=== PATIENT | female | born 1995 | race Caucasian/White ===

== ENCOUNTER 2023-05-17 11:00 | Inpatient (IN) | payer BC ==
[2023-05-17 12:27] VITALS: BMI 30.9
[2023-05-17] MEDS ORDERED: hydrALAZINE 20 MG/ML VIAL SLOW IVP PRN ×3 (13:08→23:21)
[2023-05-17] MEDS ORDERED: Lactated Ringer's 1,000 ML IV SCH (13:15)
[2023-05-17] MEDS ORDERED: Carboprost 250 MCG/ML AMP IM PRN (15:10)
[2023-05-17] MEDS ORDERED: Ibuprofen 800 MG TAB PO PRN (15:10)
[2023-05-17] MEDS ORDERED: Acetaminophen 500 MG TAB PO PRN (15:10)
[2023-05-17] MEDS ORDERED: Lidocaine 1% (PF) 30 ML VIAL SC PRN (15:10)
[2023-05-17] MEDS ORDERED: Misoprostol 200 MCG TAB PR PRN (15:10)
[2023-05-17] MEDS ORDERED: Tranexamic Acid 1,000 MG/10 ML VIAL IVP PRN (15:10)
[2023-05-17] MEDS ORDERED: Ondansetron PF 4 MG/2 ML Vial IVP PRN ×3 (15:10→23:21)
[2023-05-17] MEDS ORDERED: Methylergonovine 0.2 MG/ML VIAL IM PRN (15:10)
[2023-05-17] MEDS ORDERED: Promethazine HCl 25 MG/ML VIAL IM PRN ×2 (15:10→17:16)
[2023-05-17] MEDS ORDERED: Misoprostol 100 MCG TAB VAG SCH (15:15)
[2023-05-17] MEDS ORDERED: Oxytocin 30 units/NS 500 ML 500 ML IV SCH ×4 (15:15→23:21)
[2023-05-17 15:37] LABS: Hematocrit 36.5 % (34.9-44.5); Hemoglobin 12.4 g/dL (12.0-15.5); Mean Corpuscular Volume 76.5 fl (81.6-98.3); Mean Platelet Volume 10.1 fl (7.4-10.4); Platelet Count 212 10x3/uL (150-450); RBC Distribution Width 12.8 % (11.5-14.5); Red Blood Cell (RBC) Count 4.77 10x6/uL (3.90-5.03)
[2023-05-17 16:10] LABS: Syphilis Antibody Nonreactive (Nonreactive); Syphilis Antibody Index 0.13 S/CO (<1.00 Non-Reactive)
[2023-05-17 16:11] LABS: HBSAg Index 0.18 S/CO (0-0.99); Hep B Surf Ag - L&D Non-Reactive S/CO (NonReactive)
[2023-05-17] MEDS ORDERED: fentaNYL/Ropivacaine Epidural 100 ML ONE (16:26)
[2023-05-17] MEDS ORDERED: ePHEDrine Sulfate 50 MG/10 ML VIAL SLOW IVP PRN (17:16)
[2023-05-17] MEDS ORDERED: diphenhydrAMINE 50 MG/ML VIAL IVP PRN (17:16)
[2023-05-17] MEDS ORDERED: Lactated Ringer's 500 ML IV PRN (17:16)
[2023-05-17] MEDS ORDERED: Acetaminophen 325 MG TAB PO PRN (17:16)
[2023-05-17] MEDS ORDERED: Moisturizing Cream (Eucerin) 113 GM JAR TOP PRN (17:16)
[2023-05-17] MEDS ORDERED: Naloxone HCl 0.4 mg/ml Vial IVP PRN ×2 (17:16)
[2023-05-17] MEDS ORDERED: Communication Order-Pharmacy FS SCH (17:30)
[2023-05-17] MEDS ORDERED: fentaNYL 2 mcg/Ropivacaine 0.2% Epidural 100 ML CADD EPIDURAL SCH (17:30)
[2023-05-17] MEDS ORDERED: HYDROcodone/Acetaminophen 5/325 mg Tablet PO PRN (23:21)
[2023-05-17] MEDS ORDERED: Misoprostol 200 MCG TAB VAG PRN (23:21)
[2023-05-17] MEDS ORDERED: Lanolin Ointment 7 GM TUBE TOP PRN (23:21)
[2023-05-17] MEDS ORDERED: Boostrix 0.5 ML (Tdap) VIAL (>/=7 yrs of age) IM ONE (23:21)
[2023-05-17] MEDS ORDERED: Benzocaine-Menthol 82.5 ML CAN TOP PRN (23:21)
[2023-05-17] MEDS ORDERED: Bisacodyl 10 MG SUPP PR PRN (23:21)
[2023-05-17] MEDS ORDERED: Milk Of Magnesia 30 ML UDCUP PO PRN (23:21)
[2023-05-17] MEDS ORDERED: Ibuprofen 800 MG TAB PO SCH (23:30)
[2023-05-17] MEDS ORDERED: Docusate 100 MG CAP PO SCH (23:30)
[2023-05-18] MEDS ORDERED: Ibuprofen 800 MG TAB PO SCH (06:00)
[2023-05-18] MEDS: Ferrous Sulfate 325 MG TAB PO SCH ×2 (07:18→16:30)
[2023-05-18] MEDS ORDERED: Bupivacaine 0.25% HCL 30 ML VIAL ONE (08:00)
[2023-05-18] MEDS: HYDROcodone/Acetaminophen 5/325 mg Tablet PO PRN ×2 (08:12→18:19)
[2023-05-18] MEDS ORDERED: Docusate 100 MG CAP PO SCH (09:00)
[2023-05-18] MEDS ORDERED: Prenatal Vitamin 1 TAB PO SCH (09:00)
[2023-05-18] MEDS: Ibuprofen 800 MG TAB PO SCH ×2 (09:10→17:13)
[2023-05-18 20:09] VITALS: BP 117/66; TEMP 97.6
== END 2023-05-18 22:20 | disposition home or self-care (01) | DRG 807 ==
LOC: CSHLD/OP 11:00 → CSHLD 15:14 → CSHPP 22:55
PROVIDERS: ADMIT Student in an Organized Health Care Education/Training Program; ATTEND Student in an Organized Health Care Education/Training Program
PROC: 10E0XZZ Delivery of Products of Conception, External Approach (ICD-10-PCS; principal; 2023-05-17)
PROC: 3E033XZ Introduction of Vasopressor into Peripheral Vein, Percutaneous Approach (ICD-10-PCS; 2023-05-17)
DX: O80 Encounter for full-term uncomplicated delivery (principal); Z37.0 Single live birth; Z3A.38 38 weeks gestation of pregnancy
CPT/HCPCS: 36415; 85027; 86780; 86850; 86900; 86901; 87340; J0665; J2590

== ENCOUNTER 2024-12-24 06:28 | Inpatient (IN) | payer BC ==
[2024-12-24] MEDS ORDERED: hydrALAZINE 20 MG/ML VIAL SLOW IVP PRN ×2 (11:23→20:54)
[2024-12-24] MEDS ORDERED: Ondansetron PF 4 MG/2 ML Vial IVP PRN ×2 (11:23→12:37)
[2024-12-24] MEDS ORDERED: Lidocaine 1% (PF) 30 ML VIAL SC PRN (11:26)
[2024-12-24] MEDS ORDERED: Ibuprofen 800 MG TAB PO PRN (11:26)
[2024-12-24] MEDS ORDERED: Oxytocin 30 units/NS 500 ML 500 ML IV SCH ×2 (11:30→20:54)
[2024-12-24] MEDS ORDERED: Diphenoxylate HCl/Atropine Tablet PO PRN ×2 (11:32)
[2024-12-24] MEDS ORDERED: Carboprost 250 MCG/ML AMP IM PRN (11:32)
[2024-12-24 11:44] LABS: Hematocrit 39.9 % (34.9-44.5); Hemoglobin 13.3 g/dL (12.0-15.5); Mean Corpuscular Hemoglobin 26.3 pg (27.0-33.0); Mean Corpuscular Volume 79.0 fL (81.6-98.3); Platelet Count 242 10x3/uL (150-450); Red Blood Cell (RBC) Count 5.05 10x6/uL (3.90-5.03); White Blood Cell (WBC) Count 14.37 10x3/uL (3.5-10.5)
[2024-12-24 12:29] LABS: Syphilis Antibody Index 0.08 S/CO (<1.00 Non-Reactive)
[2024-12-24 12:30] LABS: Hep B Surf Ag - L&D Non-Reactive S/CO (NonReactive)
[2024-12-24] MEDS ORDERED: Acetaminophen 325 MG TAB PO PRN (12:37)
[2024-12-24] MEDS ORDERED: diphenhydrAMINE 50 MG/ML VIAL IVP PRN (12:37)
[2024-12-24] MEDS ORDERED: fentaNYL 2 mcg/Ropivacaine 0.2% Epidural 100 ML CADD EPIDURAL SCH (12:45)
[2024-12-24] MEDS ORDERED: Communication Order-Pharmacy FS SCH (12:45)
[2024-12-24 14:05] VITALS: BMI 34.5
[2024-12-24] MEDS: Oxytocin 30 units/NS 500 ML 500 ML IV SCH (20:50)
[2024-12-24] MEDS ORDERED: HYDROcodone/Acetaminophen 5/325 mg Tablet PO PRN ×2 (20:54)
[2024-12-24] MEDS ORDERED: Bisacodyl 10 MG SUPP PR PRN (20:54)
[2024-12-24] MEDS ORDERED: Lanolin Ointment 7 GM TUBE TOP PRN (20:54)
[2024-12-24] MEDS ORDERED: Benzocaine-Menthol 82.5 ML CAN TOP PRN (20:54)
[2024-12-24] MEDS ORDERED: Milk Of Magnesia 30 ML UDCUP PO PRN (20:54)
[2024-12-24] MEDS ORDERED: Methylergonovine 0.2 MG/ML VIAL IM PRN (20:54)
[2024-12-24] MEDS ORDERED: Boostrix 0.5 ML (Tdap) VIAL (>/=7 yrs of age) IM ONE (20:54)
[2024-12-24] MEDS: Ibuprofen 800 MG TAB PO SCH (22:27)
[2024-12-25] MEDS: Ferrous Sulfate 325 MG TAB PO SCH (08:59)
[2024-12-25] MEDS ORDERED: Bupivacaine 0.25% HCL 30 ML VIAL ONE (18:41)
[2024-12-25] MEDS ORDERED: Bupivacaine HCl 0.5%/Epinephrine 1:200,000/PF 30 ml Vial ONE (18:41)
[2024-12-25] MEDS: fentaNYL/Ropivacaine Epidural 100 ML ONE (19:10)
[2024-12-26 08:59] VITALS: BP 128/75; TEMP 97.7
== END 2024-12-26 13:58 | disposition home or self-care (01) | DRG 807 ==
LOC: CSHLD/OP 06:28 → CSHLD 10:41 → CSHPP 22:05
PROVIDERS: ADMIT Obstetrics & Gynecology; ATTEND Obstetrics & Gynecology
PROC: 10E0XZZ Delivery of Products of Conception, External Approach (ICD-10-PCS; principal; 2024-12-24)
DX: O99.354 Diseases of the nervous system complicating childbirth (principal); Z37.0 Single live birth; Z3A.36 36 weeks gestation of pregnancy
CPT/HCPCS: 51702; 80053; 81001; 82570; 84156; 85025; 86780; 86850; 86900; 86901; 87086; 87340; 99285; J0665; J2590